=== PATIENT | female | born 1995 | race Two or more races ===

== ENCOUNTER 2017-04-16 02:46 | Emergency (ER) | payer OTHER ==
[~2017-04-16] VITALS: Ht 170.2 cm; Wt 72.6 kg
[2017-04-16 02:46] VITALS: BP 124/74
[~2017-04-16 02:46] MED LIST: Tylenol #3 tab (300mg/30mg) ORAL ONE
[2017-04-16 04:00] VITALS: BP 128/74
[2017-04-16] MEDS ORDERED: TYLENOL EXTRA500 MG ORAL (04:00)
[2017-04-16 04:10] VITALS: BP 128/74
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
--- NOTE | 2017-04-19 13:40 | Diagnostic Imaging Report ---
Indication: Headache Technique: Continuous helical CT scanning of the head was performed utilizing automated exposure control without intravenous contrast material. Axial and coronal reconstructions were obtained. Comparison: None CT dose: Total DLP 1376 mGycm; CTDI vol 70.4 mGy Findings: There is no acute intracranial hemorrhage, mass effect or cortical edema. The ventricles, cisterns and sulci are within normal limits. The posterior fossa and fourth ventricle are unremarkable. Sellar and suprasellar regions are grossly unremarkable. Visualized mastoid air cells and paranasal sinuses are unremarkable. No focal lesions of the bony calvarium or soft tissues of the scalp are seen. Impression: No evidence of acute intracranial hemorrhage, mass effect or cortical edema. MRI may be obtained for more sensitive evaluation as clinically indicated. The CT scanner at [facility] is accredited by the [employer] and the scans are performed using protocols designed to limit radiation exposure to as low as reasonably achievable to attain images of sufficient resolution adequate for diagnostic evaluation.
== END 2017-04-16 04:10 | disposition home or self-care (01) ==
LOC: EDBD 02:46 → EMR 03:52
DX: S09.8XXA Other specified injuries of head, initial encounter (principal); V43.52XA Car driver injured in collision with other type car in traffic accident, initial encounter; Y92.410 Unspecified street and highway as the place of occurrence of the external cause
CPT/HCPCS: 70450; 99284